=== PATIENT | female | born 1980 ===

== ENCOUNTER 2016-09-10 18:58 | Inpatient (IN) | payer MEDICAID, OTHER ==
[2016-09-10 19:58] LABS: BASO % 0.5 % (0.0-2.0); EOS # 0.1 K/uL (0.0-0.7); EOS % 1.1 % (0.0-4.0); HEMATOCRIT 39.8 % (34.0-47.0); LYMPH # 2.6 K/uL (1.0-4.3); LYMPH % 29.1 % (20.0-40.0); MEAN CELL VOLUME 92.3 fL (81.0-99.0); MEAN CORPUSCULAR HEMOGLOBIN 30.8 pg (27.0-31.0); MEAN CORPUSCULAR HGB CONC 33.4 g/dL (33.0-37.0); MEAN PLATELET VOLUME 7.7 fL (7.2-11.7); MONO # 0.6 K/uL (0.0-0.8); MONO % 6.3 % (0.0-10.0); RED CELL DISTRIBUTION WIDTH 13.1 % (11.5-14.5)
--- NOTE | 2016-09-10 20:03 | C.PDOC ---
History Of Present Illness 35 year old female with a past medical history of major depression and anxiety, presents to the ED with complaints of depression and suicidal ideations after failed suicide attempt two days ago. Patient states two days ago she attempted to commit suicide for the first time by taking 95 pills of Xanax and Wellbutrin. She began to hallucinate and loss consciousness. Patient awoke the next night, found by son who contacted patient's mother, feeling groggy and dizzy. Today she notes feeling tired and has a headache. Patient denies fever, nausea, vomiting, SOB, dizziness, abdominal pain, or hallucinations. Time Seen by Provider: 09/10/16 19:18 Chief Complaint (Nursing): Psychiatric Evaluation History Per: Patient, Family (patient's mother and son ) History/Exam Limitations: no limitations Onset/Duration Of Symptoms: Unknown Current Symptoms Are (Timing): Still Present Suicide/Self Injury Attempted (Context): Ingestion (95 pills of Xanax and Wellbutrin of unknown combination ) Associated Symptoms: Depression, Suicidal Thoughts, Suicidal Plan Involuntary Hold By: None Recent travel outside of the [place]: No Past Medical History Reviewed: Historical Data, Nursing Documentation, Vital Signs Vital Signs: Last Vital Signs Temp 98 F 09/10/16 23:00 Pulse 80 09/10/16 23:00 Resp 14 09/10/16 23:00 BP 120/80 09/10/16 23:00 Pulse Ox 97 09/11/16 00:26 - Medical History PMH: Anxiety, Depression Surgical History: Cholecystectomy Family History: States: Unknown Family Hx - Social History Hx Tobacco Use: Yes (as per patient, smokes half a pack of cigarettes a day for last 15 years) Hx Alcohol Use: Yes Hx Substance Use: Yes - Immunization History Hx Tetanus Toxoid Vaccination: No Hx Influenza Vaccination: No Hx Pneumococcal Vaccination: No Review Of Systems Constitutional: Negative for: Fever, Chills Cardiovascular: Negative for: Chest Pain, Palpitations Respiratory: Negative for: Cough, Shortness of Breath Gastrointestinal: Negative for: Nausea, Vomiting, Abdominal Pain, Diarrhea Neurological: Positive for: Headache Psych: Positive for: Depression, Suicidal ideation Physical Exam - Physical Exam Appears: Non-toxic, No Acute Distress Skin: Warm, Dry Head: Atraumatic Eye(s): bilateral: Normal Inspection, PERRL, EOMI Oral Mucosa: Moist Neck: Supple Chest: Symmetrical, No Deformity Cardiovascular: Rhythm Regular Respiratory: Normal Breath Sounds, No Rales, No Rhonchi, No Wheezing Gastrointestinal/Abdominal: Soft, No Tenderness, No Distention, No Guarding, No Rebound Extremity: Normal ROM, No Tenderness Neurological/Psych: Oriented x3, Normal Cognition, Normal Cranial Nerves, Normal Motor, Normal Sensation, Other (patient has flat affect ) ED Course And Treatment - Laboratory Results Result Diagrams: 09/10/16 19:50 09/10/16 19:50 Lab Interpretation: Normal (tylenol, ASA, etoh levels neg.) ECG: Interpreted By Me ECG Rhythm: Sinus Bradycardia ECG Interpretation: Normal Rate From EC (normal QTC 443) O2 Sat by Pulse Oximetry: 97 (room air ) Pulse Ox Interpretation: Normal Reevaluation Time: 00:24 Reassessment Condition: Improved (remains comfortable, cooperative, flat affect) - Physician Consult Information Outcome Of Conversation: 0030: d/w Crisis Evaluators, ok to Psych Medical Decision Making Medical Decision Making: ? depression, delusional, NO evidence of xanax/psych med overdose, neg tylenol/ASA levels. labs grossly normal ekg wnl Disposition Doctor Will See Patient In The: Hospital Counseled Patient/Family Regarding: Studies Performed, Diagnosis - Disposition Disposition: HOSPITALIZED Disposition Time: 00:26 Condition: GOOD - Clinical Impression Clinical Impression: Depression - Scribe Statement The provider has reviewed the documentation as recorded by the Scribmarbin Garrido All medical record entries made by the Scribe were at my direction and personally dictated by me. I have reviewed the chart and agree that the record accurately reflects my personal performance of the history, physical exam, medical decision making, and the department course for this patient. I have also personally directed, reviewed, and agree with the discharge instructions and disposition.
[2016-09-10 20:06] LABS: CHLORIDE 105 mmol/L (98-107); POTASSIUM 3.6 mmol/L (3.6-5.2); SODIUM 138 mmol/L (132-148)
[2016-09-10 20:08] LABS: AST/SGOT 20 U/L (14-36); BILIRUBIN,TOTAL 0.7 mg/dL (0.2-1.3); CARBON DIOXIDE 21 mmol/L (22-30); GFR AFRICAN-AMERICAN > 60
[2016-09-10 20:09] LABS: ALB/GLOB RATIO 1.2 (1.0-2.1); ALCOHOL SERUM < 10 mg/dl (0-10); ALKALINE PHOSPHATASE 85 U/L (38-126); ALT/SGPT 22 U/L (9-52); BLOOD UREA NITROGEN 8 mg/dL (7-17); CALCIUM 9.1 mg/dl (8.6-10.4); GLUCOSE,RANDOM 84 mg/dL (65-105); TOTAL PROTEIN 7.4 g/dL (6.3-8.3)
[2016-09-11 02:29] VITALS: O2SAT 99
--- NOTE | 2016-09-11 04:07 | PCM.BM ---
<Mendez Early - Last Filed: 09/11/16 04:05> Treatment Plan Problems - Problems identified on initial assessmt Problem 1 Time Initiated: 04:05 Assessment reference: NA Status: Active Problem 2 Date Initiated: 09/11/16 (Suicidal Ideation) Time Initiated: 04:06 Assessment reference: NA Status: Active Treatment assets and liabiliti Patient Assests: cooperative, educated, ADL independent, physically healthy, negotiates basic needs Patient Liabilities: financial problems, poor support system - Milieu Protocol Maintain good personal hygiene: daily Encourage regular showers, daily Remind patient to perform daily oral care, daily Assist patient to perform ADL's Maintain personal safety: every shift Educate patient to report safety concerns to staff, every shift Monitor environment for contraband/sharps Medication safety: Monitor for expected outcome, potential side effects: every shift, Assess barriers to learning: every shift, Assess readiness for medication education: every shift <Lore Jc - Last Filed: 09/13/16 11:48> Family Contact Family involvement: Patient does not wish Family/SO involvement Family contact: Patient declines to allow family contact at present - Goals for Treatment Patient goals for treatment: "I want to go home." Patient's family/SO goals for treatment: n/a Discharge/Continuing Care - Education Needs Education Needs: Patient Medication, Patient Coping Skills - Discharge Discharge Criteria: Tolerates medication w/o severe side effects, Free of Suicidal thoughts Discharge to:: Home, With Family - Treatment Team Participation Discussed with Family/SO: No Was Patient/Family/SO present at Treatment Team Meeting: Yes <Parrish Caballero - Last Filed: 09/15/16 22:06> - Diagnosis (1) Depression Status: Acute Interventions: 09/15/16 22:06 * Assess/adjust medications daily and /or as needed * See patient on an individual basis 7x/week to assess symptoms of depression * Monitor for side effects & effectiveness of medications *
--- NOTE | 2016-09-11 20:47 | PCM.PSYCH ---
Initial Psychiatric Evaluation - Initial Psychiatric Evaluation Type of Admission: Voluntary Legal Status: Capacity Chief Complaint (in patient's own words): I was feeling guilty about my father's . I took a lot of Xanax and Wellbutrin to kill myself. History of Present Illness and Precipitating Events: Patient is a 35 years old, single, currently unemployed, female with history of depressive disorder and cannabis use disorder was admitted to psychiatric unit after attempting suicide 2 days ago. Patient with history of depression, under treatment at [facility] compliant with treatment including Wellbutrin XL 150 mg, Lexapro 20 mg, Seroquel 50 mg in the morning and 100 mg at night and Xanax 0.5 mg 4 times a day. Patient was stable on these medications. Her father about 2 years ago. Patient was not with her father at that time. Later patient felt guilty that she was not there with her father at the time of his . At that time with pharmacotherapy and psychotherapy patient came out of that situation. Recently patient reported that just before that anniversary of her father she again started having those feelings especially at night, was crying. 2 days before admission patient attempted to kill herself by overdose on Xanax and Wellbutrin. Patient took about 95 Xanax and 20 Wellbutrin. Didn't go to the hospital. According to patient she started hallucinating after overdose and slept. Next day patient's son found her and called patient's mother who brought her to the ER for evaluation. Patient denied any sleeping or appetite problems. Denied any current suicidal or homicidal ideations. This was patient's first suicidal attempt and first inpatient psychiatric admission. Denied any psychotic manic or anxiety symptoms. Patient smokes cannabis at times. Denied use of any other drugs including alcohol cocaine and heroin. Smokes half pack of cigarettes daily and requesting nicotine patch. Patient was born in [place], has bachelors degree in arts. Currently not working, never , has 19 years old son. Patient lives with her son. Her height is 5 feet 3 inches and weight is 162 pounds. Current Medications: Active Medications Generic Name Dose Route Start Last Admin Trade Name Freq PRN Reason Stop Dose Admin Escitalopram Oxalate 20 mg 09/11/16 13:30 09/11/16 15:52 Lexapro PO 20 mg DAILY ANTONIO Administration Hydroxyzine HCl 25 mg 09/11/16 04:00 09/11/16 15:52 Atarax PO 25 mg Q6 PRN Administration Anxiety Lorazepam 1 mg 09/11/16 18:00 09/11/16 18:12 Ativan PO 1 mg BID ANTONIO Administration Nicotine 1 patch 09/11/16 13:30 09/11/16 15:53 Nicoderm Cq TD 1 patch DAILY ANTONIO Administration Quetiapine Fumarate 50 mg 09/12/16 10:00 Seroquel PO DAILY ANTONIO Quetiapine Fumarate 100 mg 09/11/16 22:00 Seroquel PO HS ANTONIO Trazodone HCl 50 mg 09/11/16 04:00 Desyrel PO HS PRN Sleep Past Psychiatric History - Past Psychiatric History Prior Professional Help: Outpatient at [facility] History of Abuse: None reported History of ETOH/Drug Use: See HPI History of Family Illness: Reported her brother has history of schizophrenia, mother has history of depression and her father had history of bipolar disorder. Pertinent Medical Hx (Current Medical&Sleep Prob, Allergies): Allergies Allergy/AdvReac Type Severity Reaction Status Date / Time No Known Allergies Allergy Verified 09/10/16 19:06 Alprazolam [Xanax] 0.5 mg PO QID 09/10/16 Escitalopram [Lexapro] 10 mg PO DAILY 09/10/16 QUEtiapine [SEROquel] 50 mg PO DAILY 09/10/16 QUEtiapine [SEROquel] 100 mg PO HS 09/10/16 buPROPion XL [Wellbutrin] 150 mg PO DAILY 09/10/16 Review of Systems - Psychiatric Psychiatric: Depression Mental Status Examination - Personal Presentation Personal Presentation: Looks stated age - Affect Affect: Depressed - Motor Activity Motor Activity: Calm - Reliability in Providing Information Reliability in Providing Information: Good - Speech Speech: Organized - Mood Mood: Depressed - Formal Thought Process Formal Thought Process: No Impairment - Hallucinations/Delusions Hallucinations: Other (None reported) Delusions: Other - Obsessions/Compulsions Obsessions: None Compulsions: None - Cognitive Functions Orientation: Person, Place, Situation, Time Sensorium: Alert Attention/Concentration: Attentive Abstract Thinking: [place] Estimate of Intelligence: Average Judgement: Intact, as evidence by: Good judgement Memory: Recent intact, as evidence by: 3/3 object recall, Remote intact, as evidenced by: Ability to recall historical events - Risk Risk: Withdrawal, Diminished functioning - Strength & Assets Inventory Strength & Assets Inventory: Cooperative - Limitations Limitations: Living alone DSM 5 DX - DSM 5 DSM 5 Diagnosis: Major depressive disorder recurrent severe Cannabis use disorder - Recommended/Plan of Treatment Treatment Recommendations and Plan of Treatment: Patient education Supportive therapy Will start patient on Lexapro, Seroquel and Ativan Other when necessary medications Projected ELOS: 4-5 days Discharge Plan and Discharge Criteria: We will discharged back to [facility] - Smoking Cessation Smoking Cessation Initiated: Yes
--- NOTE | 2016-09-12 12:58 | PCM.PYCHPN ---
Psychiatric Progress Note - Psychiatric Progress Note Patient seen today, length of contact: 16 min Patient Chief Complaint: "OK" Problems Identified/Issues Discussed: The pt is seen, chart reviewed, case discussed with staff. The pt is compliant with medications and reports no side-effects. Symptoms are improving but needs more time to stabilize. After care discussed, support and psychoeducation given. Medication Change: Yes Medical Record Reviewed: Yes Mental Status Examination - Cognitive Function Orientation: Person, Place, Situation, Time Memory: Intact Attention: WNL Concentration: WNL Association: WNL Fund of Knowledge: WNL - Mood Mood: Depressed - Affect Affect: Constricted, Depressed - Speech Speech: Appropriate - Formal Thought Process Formal Thought Process: No Impairment - Suicidal Ideation Suicidal Ideation: No - Homicidal Ideation Homicidal Ideation: No Goal/Treatment Plan - Goal/Treatment Plan Need for Continued Stay: Discharge may exacerbated symptoms, Severe functional impairment Progress Toward Problem(s) and Goals/Treatment Plan: Continue medications Support and psychoeducation daily Attend groups and activities daily After care planning by CORDELL Estimated Date of D/C: 09/14/16
[2016-09-13 08:06] VITALS: RESP 18
--- NOTE | 2016-09-13 16:38 | PCM.PYCHPN ---
Psychiatric Progress Note - Psychiatric Progress Note Patient seen today, length of contact: 16 min Patient Chief Complaint: "OK" Problems Identified/Issues Discussed: The pt is seen, chart reviewed, case discussed with staff. The pt is compliant with medications and reports no side-effects. Symptoms are improving but needs more time to stabilize. She denies any suicidal ideations. After care discussed, support and psychoeducation given. Pt states that she will follow up with Dr. Irvin after discharge. Medication Change: Yes Medical Record Reviewed: Yes Mental Status Examination - Cognitive Function Orientation: Person, Place, Situation, Time Memory: Intact Attention: WNL Concentration: WNL Association: [facility] Fund of Knowledge: WN - Mood Mood: Depressed - Affect Affect: Constricted, Depressed - Speech Speech: Appropriate - Formal Thought Process Formal Thought Process: No Impairment - Suicidal Ideation Suicidal Ideation: No - Homicidal Ideation Homicidal Ideation: No Goal/Treatment Plan - Goal/Treatment Plan Need for Continued Stay: Discharge may exacerbated symptoms, Severe functional impairment Progress Toward Problem(s) and Goals/Treatment Plan: Continue medications Support and psychoeducation daily Attend groups and activities daily After care planning by CORDELL - pt states that she will follow up with Dr. Irvin. Estimated Date of D/C: 09/14/16
[2016-09-14 07:44] VITALS: BP 89/60; PULSE 67; TEMP 98.2
--- NOTE | 2016-09-14 10:25 | PCM.PYCHDC ---
Mental Status Examination - Mental Status Examination Orientation: Person, Place, Situation, Time Memory: Intact Mood: Neutral Affect: Constricted Speech: Soft Attention: WNL Concentration: WNL Association: WNL Fund of Knowledge: WNL Formal Thought Process: No Impairment Description of patient's judgement and insight: good, fair Psychotic Thoughts and Behaviors: denies any AVH Suicidal Ideation: No Current Homicidal Ideation?: No Discharge Summary - Discharge Note Reason for Hospitalization: Patient is a 35 years old, single, currently unemployed, female with history of depressive disorder and cannabis use disorder was admitted to psychiatric unit after attempting suicide 2 days ago. Patient with history of depression, under treatment at [facility], compliant with treatment including Wellbutrin XL 150 mg, Lexapro 20 mg, Seroquel 50 mg in the morning and 100 mg at night and Xanax 0.5 mg 4 times a day. Patient was stable on these medications. Her father about 2 years ago. Patient was not with her father at that time. Later patient felt guilty that she was not there with her father at the time of his . At that time with pharmacotherapy and psychotherapy patient came out of that situation. Recently patient reported that just before that anniversary of her father she again started having those feelings especially at night, was crying. 2 days before admission patient attempted to kill herself by overdose on Xanax and Wellbutrin. Patient took about 95 Xanax and 20 Wellbutrin. Didn't go to the hospital. According to patient she started hallucinating after overdose and slept. Next day patient's son found her and called patient's mother who brought her to the ER for evaluation. Patient denied any sleeping or appetite problems. Denied any current suicidal or homicidal ideations. This was patient's first suicidal attempt and first inpatient psychiatric admission. Denied any psychotic manic or anxiety symptoms. Patient smokes cannabis at times. Denied use of any other drugs including alcohol cocaine and heroin. Smokes half pack of cigarettes daily and requesting nicotine patch. Patient was born in [place], has bachelors degree in arts. Currently not working, never , has 19 years old son. Patient lives with her son. Her height is 5 feet 3 inches and weight is 162 pounds. Consultations:: List each consultation separately and include: 1. Reason for request. 2. Findings. 3. Follow-up Summary of Hospital Course include:: 1. Description of specific treatment plan utilized for patients during their course of treatmen. 2. Summarize the time- course for resolution of acute symptoms and/or regressed behaviors. 3. Describe issues identified and worked on during hospitalization. 4. Describe medication utilized. 5. Describe medical problems identified and treated. 6. Reassessment of suicide risk Summary of Hospital Course: During the course of her stay, patient (pt) started progressively improving and she no longer remained anxious, depressed and suicidal. Her mood was getting better and she started attending groups and meetings and started socializing. The doses of her medications were maximized and patient denied any feelings of hopelessness, helplessness, and worthlessness, denied any problem with the sleep or appetite, denied suicidal ideation or homicidal ideation. Pt denied any auditory or visual hallucinations. Patient reported improvement in her mood and tolerated these medications very well and denied any side effects. - Final Diagnosis (DSM 5) Condition upon Discharge: GOOD DSM 5: Major depressive disorder recurrent severe Cannabis use disorder Disposition: HOME/ ROUTINE Follow-up Treatment Plan: Education: Pt was educated and counseled about the risks and benefits of taking and not taking medications. Pt was educated and counseled about the risks of drinking and abusing drugs. Pt was educated and counseled to go to the ER or call 911 if pt develop suicidal ideation or homicidal ideation, worsening of symptoms or severe side effects of the meds. Prescriptions/Medication Reconciliation: Escitalopram [Lexapro] 20 mg PO DAILY #30 tab QUEtiapine [Seroquel] 100 mg PO HS #30 tab QUEtiapine [SEROquel] 50 mg PO DAILY #30 tab traZODone [Desyrel] 50 mg PO HS PRN #30 tab PRN Reason: Sleep - Smoking Cessation Smoking Cessation Medication prescribed: No - Antipsychotic Medications Pt discharged on 2 or more routine antipsychotic medications: No
--- NOTE | 2016-09-14 17:00 | CARD ---
APPROVED REPORT EKG Measurement Heart [id number] <Conclusion> Normal sinus rhythm Normal ECG
== END 2016-09-14 12:00 | disposition home or self-care (01) | DRG 430 ==
LOC: C.ER 18:58 → C.5E 09-11 00:26
PROC: GZ3ZZZZ Medication Management (ICD-10-PCS; principal; 2016-09-11)
PROC: GZHZZZZ Group Psychotherapy (ICD-10-PCS; 2016-09-11)
PROC: GZ56ZZZ Individual Psychotherapy, Supportive (ICD-10-PCS; 2016-09-11)
DX: F33.2 Major depressive disorder, recurrent severe without psychotic features (principal); F17.210 Nicotine dependence, cigarettes, uncomplicated; F12.10 Cannabis abuse, uncomplicated; Z81.8 Family history of other mental and behavioral disorders; Z91.5 Personal history of self-harm

== ENCOUNTER 2016-10-03 13:49 | Emergency (ER) | payer MEDICAID, OTHER ==
[2016-10-03 14:27] VITALS: BMI 27.9
[2016-10-03 14:29] VITALS: BP 100/71; PULSE 70; RESP 20; TEMP 98.5; O2SAT 97
--- NOTE | 2016-10-03 15:26 | C.PDOC ---
History Of Present Illness 35 yo female come in for evaluation of painful mass over Right sided abdominal wall gradually worsen for apst 4 days. Pt sts, " always had some cyst on my side and it just go infected". Otherwise, pt denies fever, chills, abd, pain, N/ V, denies wound draining or any other active complaints. Ambulate to ED for evaluation, not in any apparent distress. Time Seen by Provider: 10/03/16 14:30 Chief Complaint (Nursing): Abnormal Skin Integrity History Per: Patient Onset/Duration Of Symptoms: Gradual Past Medical History Reviewed: Historical Data, Nursing Documentation, Vital Signs Vital Signs: Last Vital Signs Temp 98.5 F 10/03/16 14:26 Pulse 70 10/03/16 14:26 Resp 20 10/03/16 14:26 BP 100/71 10/03/16 14:26 Pulse Ox 97 10/03/16 14:26 - Medical History PMH: Anxiety, Depression, Gastritis Denies: Crohn's Disease, Diabetes, Diverticulitis, Hepatitis, HIV, HTN, Pancreatitis, Chronic Kidney Disease, Seizures, Sexually Transmitted Disease Surgical History: Cholecystectomy - [facility] Procedures GROUP PSYCHOTHERAPY (09/11/16) INDIVIDUAL PSYCHOTHERAPY, SUPPORTIVE (09/11/16) MEDICATION MANAGEMENT (09/11/16) Family History: States: Unknown Family Hx - Social History Hx Tobacco Use: Yes (as per patient, smokes half a pack of cigarettes a day for last 15 years) Hx Alcohol Use: No (Socially) Hx Substance Use: Yes - Immunization History Hx Tetanus Toxoid Vaccination: No Hx Influenza Vaccination: No Hx Pneumococcal Vaccination: No Review Of Systems Except As Marked, All Systems Reviewed And Found Negative. Constitutional: Negative for: Fever, Chills ENT: Negative for: Throat Pain Gastrointestinal: Negative for: Nausea, Vomiting, Abdominal Pain, Diarrhea Skin: Positive for: Lesions Neurological: Negative for: Weakness, Numbness Physical Exam - Physical Exam Appears: Well, Non-toxic, No Acute Distress Skin: Other (Right side abdomenal wall: tender mass 4cm diameter with erythema, (+) flactulance, (-) proximal streaking.) Lymphatic: No Inguinal Node Tenderness Gastrointestinal/Abdominal: Soft, No Tenderness, No Distention, No Guarding, No Rebound Extremity: Normal ROM, No Pedal Edema, No Deformity Neurological/Psych: Oriented x3, Normal Speech ED Course And Treatment O2 Sat by Pulse Oximetry: 97 Progress Note: On re-evaluation, pt is afebrile, hemodynamicaly stable. Non- toxic. ABd: benign. Skin: (+) Right sided abscess s/p I&D, no proximal streaking. Abx given. Pt advised and ref. to return to ED in 2 days for wound check. return to ED at any time if any worsening or new changes. - Incision & Drainage Of Abscess Anesthesia: Lidocaine 2% Prep Used: Betadine Procedure: Incised W/Scalpel Blade#: (11), Drained Pus (5ml), Irrigated Cavity W /Saline, Probed To Break Up Loculations, Packed W/Gauze Disposition Counseled Patient/Family Regarding: Diagnosis, Need For Followup, Rx Given - Disposition Referrals: Marisol Jimenez MD [Staff Provider] - Brittani Leslie MD [Staff Provider] - Disposition: HOME/ ROUTINE Disposition Time: 15:23 Condition: STABLE Additional Instructions: Take medication as prescribed Return to ED in 2 days for wound check. return to ED at any time if any worsening or new changes. Prescriptions: Doxycycline Hyclate 100 mg PO BID #14 capsule Instructions: Abscess (ED), Abscess Incision and Drainage (ED) Forms: [employer] ([place]) - Clinical Impression Clinical Impression: Abscess
== END 2016-10-03 15:40 | disposition home or self-care (01) ==
LOC: C.ER 13:49
DX: L02.211 Cutaneous abscess of abdominal wall (principal)

== ENCOUNTER 2016-10-05 17:08 | Emergency (ER) | payer OTHER ==
[2016-10-05 17:09] VITALS: BMI 27.9
[2016-10-05 17:48] VITALS: RESP 18; O2SAT 100
--- NOTE | 2016-10-05 18:29 | C.PDOC ---
History Of Present Illness 35 yr old female presents to the ER for a wound check. Patient reports she had a I&D done 2 days ago on her right hip. Denies fever, chills, nausea, vomiting, back pain or leg pain. Time Seen by Provider: 10/05/16 18:13 Chief Complaint (Nursing): Wound Check History Per: Patient History/Exam Limitations: no limitations Onset/Duration Of Symptoms: Days Ago (2) Past Medical History Reviewed: Historical Data, Nursing Documentation, Vital Signs Vital Signs: Last Vital Signs Temp 98.1 F 10/05/16 18:29 Pulse 64 10/05/16 18:29 Resp 18 10/05/16 18:29 BP 108/73 10/05/16 18:29 Pulse Ox 100 10/05/16 18:37 - Medical History PMH: Anxiety, Depression, Gastritis Surgical History: Cholecystectomy - [facility] GROUP PSYCHOTHERAPY (09/11/16) INDIVIDUAL PSYCHOTHERAPY, SUPPORTIVE (09/11/16) MEDICATION MANAGEMENT (09/11/16) Family History: States: No Known Family Hx - Social History Hx Tobacco Use: Yes (as per patient, smokes half a pack of cigarettes a day for last 15 years) Hx Alcohol Use: No (Socially) Hx Substance Use: Yes (denies) - Immunization History Hx Tetanus Toxoid Vaccination: No Hx Influenza Vaccination: No Hx Pneumococcal Vaccination: No Review Of Systems Constitutional: Negative for: Fever, Chills Gastrointestinal: Negative for: Nausea, Vomiting Musculoskeletal: Negative for: Back Pain, Leg Pain Skin: Positive for: Other (I&D to the right hip.) Physical Exam - Physical Exam Appears: Non-toxic, No Acute Distress Skin: Warm, Dry, No Rash, Other (Right Hip - 1x3cm area of mild induration. No erythema. No warmth. No signs of infection. ) Head: Atraumatic, Normacephalic Oral Mucosa: Moist Extremity: Normal ROM, No Swelling Neurological/Psych: Oriented x3, Normal Speech, Normal Motor ED Course And Treatment O2 Sat by Pulse Oximetry: 100 (RA) Pulse Ox Interpretation: Normal Medical Decision Making Medical Decision Making: Packing removed; scant purulent discharge. no warmth., mild induration. pt to continue antibiotics f/u pmd. Disposition Counseled Patient/Family Regarding: Diagnosis, Need For Followup, Rx Given - Disposition Referrals: Marisol Jimenez MD [Staff Provider] - Disposition: HOME/ ROUTINE Disposition Time: 18:31 Condition: STABLE Additional Instructions: Rinse wound with soap and water when bathing. Continue antibiotics. Follow uip with Dr Jimenez in a few days. Instructions: Abscess Follow-up (ED) Forms: [facility] ([facility]), General Discharge Instructions - Clinical Impression Clinical Impression: Wound check, abscess - PA / FINAL INSPECTOR / Resident Statement MD/DO has reviewed & agrees with the documentation as recorded. - Scribe Statement The provider has reviewed the documentation as recorded by the Scribe Deisi Uribe All medical record entries made by the [employer]mo[employer] were at my direction and personally dictated by me. I have reviewed the chart and agree that the record accurately reflects my personal performance of the history, physical exam, medical decision making, and the department course for this patient. I have also personally directed, reviewed, and agree with the discharge instructions and disposition.
[2016-10-05 18:30] VITALS: BP 108/73; PULSE 64; TEMP 98.1
== END 2016-10-05 18:40 | disposition home or self-care (01) ==
LOC: C.ER 17:08
DX: Z48.00 Encounter for change or removal of nonsurgical wound dressing (principal)